=== PATIENT | female | born 1995 | race Caucasian/White ===

== ENCOUNTER 2018-10-06 16:00 | Outpatient (RCR) | payer BC, SELFPAY ==
--- NOTE | 2018-08-24 18:05 | HMH.PTOPEV ---
PT Outpatient Evaluation Rehab PT Outpatient Evaluation Start: 08/24/18 17:34 Freq: Status: Active Protocol: Document 08/24/18 17:35 CUONGASH (Rec: 08/24/18 18:05 ROSEY [id number]) Electronically Signed By Ramiro Wilkins, PT 08/24/18 17:35 Outpatient Therapy Subjective History Subjective History Pt reports she began having neck pain and LUX's ~ 1 year ago. 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 Pt reprots Rx muscle relaxers help w/ pain and frequency of LUX's. 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/Reading Driving Sleeping Sitting Recreation Activity Symptom Description Constant but Variable Level of pain today (0-10) 5 Pain scale - at its best (0-10) 1 Pain scale - at its worst (0-10) 7 Cervical Eval Palpation Cervical Muscles R Cervical Paraspinal L Cervical Paraspinal R Suboccipital L Suboccipital R Upper Trapezius L Upper Trapezius Cervical/Thoracic Palpation Findings Tenderness Trigger Point Passive Joint Mobility Cervical PIVM Inc: L C2/3 L C3/4 Dec: R C2/3 R C4/5 AROM Cervical Spine Extension Active Range of 35 Motion (degrees) Cervical Spine Flexion Active Range of 55 Motion (degrees) Cervical Spine Right Lateral Flexion 40 Active Range of Motion (degrees) Cervical Spine Left Lateral Flexion 40 Active Range of Motion (degrees) Cervical Spine Right Rotation Active 65 Ra
== END 2018-10-06 16:05 | disposition home or self-care (01) ==
LOC: PT 16:00
PROVIDERS: Visit Provider Emergency Medicine
DX: M54.2 Cervicalgia (principal)
CPT/HCPCS: 97010; 97012; 97014; 97035; 97110; 97140; 97163; G0283

== ENCOUNTER 2021-06-10 09:00 | Emergency (ER) | payer BC, SELFPAY ==
[2021-06-10 09:16] VITALS: BP 139/78; PULSE 95; RESP 16; TEMP 37.4; O2SAT 97; BMI 33.6
[2021-06-10 09:20] LABS: UTC Strep Screen (Rapid) Positive (Negative)
--- NOTE | 2021-06-10 09:36 | HMH.EDUTC ---
[facility] [place] Clinical Impression: Strep throat Disposition: Home, Self-Care Condition on Discharge: Good Instructions: DI for Strep Throat, Strep Throat Additional Instructions: Drink plenty of fluids. Take tylenol or ibuprofen for pain or fever. Take the medications as directed. Follow up with your regular doctor. GO TO THE ER FOR ANY WORSENING SYMPTOMS Throw your tooth brush away and get a new one. Prescriptions: Brompheniramine/Pseudoephed/Dm [Bromfed Dm Cough Syrup] 5 ml PO Q6HP PRN #240 ml PRN Reason: Cough Transmission Status: Pending to [facility] Amoxicillin [Amoxicillin 500mg Tab] 500 mg PO TID 10 Days #30 tab Transmission Status: Pending to [facility] Referrals: Provider,Referral, MD [Primary Care Provider] - Forms: Work/School Release Time of Disposition: 09:43 Medical Decision Making - Medical Records Medical records reviewed: No: I reviewed the patient's medical records. - Ronaldo Inquiry Pt receiving controlled substance: No Vital Signs: 06/10/21 09:16 Temperature 99.4 F Temperature Source Oral Pulse Rate [Right Brachial] 95 H Respiratory Rate 16 Blood Pressure [Right Arm] 139/78 Blood Pressure Mean [Right Arm] 98 Blood Pressure Source [Right Arm] Automatic Cuff Blood Pressure Position [Right Arm] Sitting 02 Sat by Pulse Oximetry 97 Oxygen Delivery Method Room Air - Lab Data Lab results reviewed: Yes: I reviewed the patient's lab results. Lab Results 06/10/21 09:15: Strep Scn Rapid Clinic Positive A [facility] [place] H[place] - General Stated complaint: sore throat, runny nose, LUX, congestion Time Seen by Provider: 06/10/21 09:36 Mode of Arrival: Ambulatory Source of Information: Patient Limitations: No Limitations Description of Symptoms (Recalled from Triage Doc. by RN): sore throat. congestion. fatigue HEENT Symptoms (Recalled from RN notes): Yes Resp Symptoms (Recalled from RN notes): Yes Skin Symptoms (Recalled from RN notes): No MS Symptoms (Recalled from RN notes): No Functional Status (Recalled from RN notes): yes - History of Present Illness Provider Complaint: She c/o sore throat for the past 2 days. She has a dry cough and she has been having some chilling and body aches also. - Related Data Home Medications Medication Instructions Recorded Confirmed Levonorgestrel/Ethin.estradiol 15 mg PO DAILY 06/10/21 06/10/21 [Jolessa 0.15 mg-0.03 mg Tablet] Topiramate 25 mg PO DAILY 06/10/21 06/10/21 Previous Rx's Medication Instructions Recorded Amoxicillin [Amoxicillin 500mg Tab] 500 mg PO TID 10 Days #30 tab 06/10/21 Brompheniramine/Pseudoephed/Dm 5 ml PO Q6HP PRN #240 ml 06/10/21 [Bromfed Dm Cough Syrup] Allergies Allergy/AdvReac Type Severity Reaction Status Date / Time No Known Allergies Allergy Verified 06/10/21 09:14 - Worker's Comp Is this a Worker's Comp case?: No Is this an [facility] Worker's Comp?: No Is this a [place] Worker's Comp?: No H History - Hepatitis A Screen Drug use history?: No High risk sexual behaviors?: No History of sexually transmitted infection?: No Currently employed?: No Childcare worker?: No Do you have indoor plumbing?: Yes Do you have electricity?: Yes Attestation statement:: This patient has been screened for Hepatitis A risk factors. I have reviewed the patient's past medical history: Yes ROS Obtained: Yes All systems reviewed & no additional complaints - Constitutional Constitutional: Reports chills, Reports fever(s), Reports poor appetite, Reports malaise - Eyes Eyes: Denies eye discharge - ENT Ears, Nose, Mouth, and Throat: Reports as per HPI - Cardiovascular Cardiovascular: Denies chest pain - Respiratory Respiratory: Denies chest congestion, Reports cough, Denies dyspnea, Denies stridor, Denies wheezing - Gastrointestinal Gastrointestingal: Reports: nausea. Denies: abdominal pain, diarrhea, vomiting Physical Exam - General General
[2021-06-10 09:51] VITALS: BP 139/78; PULSE 95; RESP 18; TEMP 37.4
== END 2021-06-10 09:51 | disposition home or self-care (01) ==
PROVIDERS: Emergency Provider Nurse Practitioner Family
DX: J02.0 Streptococcal pharyngitis (principal)
CPT/HCPCS: 87880; 99202; G0463

== ENCOUNTER 2021-06-13 11:30 | Emergency (ER) | payer BC, SELFPAY ==
[2021-06-13 12:46] VITALS: BP 128/84; PULSE 84; RESP 19; TEMP 37.1; O2SAT 99; BMI 34.7
--- NOTE | 2021-06-13 13:24 | HMH.EDUTC ---
[facility] [place] Disposition Clinical Impression: Strep throat, Bronchitis Disposition: Home, Self-Care Condition on Discharge: Good Instructions: DI for Strep Throat, DI for Acute Bronchitis Additional Instructions: Drink plenty of fluids. Take tylenol or ibuprofen for pain or fever. Stop the Follow up with your regular doctor. GO TO THE ER FOR ANY WORSENING SYMPTOMS Quarantine until you know the results of your covid-19 test. If it is positive, the health department should call you and give you further instructions about your length of Quarantine and other things. Notify your school or workplace of your results and follow their instructions regarding return to work/school. Don't start the oral steroids until tomorrow, since you had the shot here today. Prescriptions: methylPREDNISolone [Medrol] 4 mg PO DIRECTED 6 Days #21 packet Transmission Status[facility] Azithromycin [Z-Shahzad 250mg Tab*] 250 mg PO UD DOSE PK #6 tab Transmission Status: [facility] Referrals: Provider,Referral, [Primary Care Provider] - Medical Decision Making - Medical Records Medical records reviewed: No: I reviewed the patient's medical records. - Ronaldo Inquiry Pt receiving controlled substance: No Vital Signs: 06/13/21 12:46 06/13/21 13:46 Temperature 98.7 F 98.7 F Temperature Source Oral Pulse Rate 84 Pulse Rate [Left] 84 Respiratory Rate 19 19 Blood Pressure 128/84 Blood Pressure [Right Arm] 128/84 Blood Pressure Mean [Right Arm] 98 02 Sat by Pulse Oximetry 99 - Lab Data Lab Results 06/13/21 13:34: Chlamy pneumoniae PCR Not detected, Adenovirus (PCR) Not detected, B. pertussis DNA (PCR) Not detected, Coronavirus OC43 (PCR) Not detected, Coronavirus HKU1 (PCR) Not detected, Coronavirus 229E (PCR) Not detected, SARS-CoV-2 (PCR) Not detected, Coronavirus NL63 (PCR) Not detected, Human Metapneumovir PCR Not detected, Influenza A (H1) PCR Not detected, Influ A (H1N1/09) PCR Not detected, Influenza A (H3) PCR Not detected, Influenza Type A (PCR) Not detected, Influenza Type B (PCR) Not detected, M. pneumoniae (PCR) Not detected, Parainfluenza 1 (PCR) Not detected, Parainfluenza 2 (PCR) Not detected, Parainfluenza 3 (PCR) Not detected, Parainfluenza 4 (PCR) Not detected, RSV (PCR) Not detected, Entero/Rhino (PCR) Detected A Orders (Tests/Meds): ED MEDICATIONS Discontinued Medications Generic Name Dose Route Start Last Admin Trade Name Jeimy PRN Reason Stop Dose Admin Ceftriaxone Sodium 1 gm 06/13/21 13:32 06/13/21 13:46 Ceftriaxone 1gm Vial IM 06/13/21 13:33 1 gm ONCE ONE Administration Lidocaine HCl 0 ml 06/13/21 13:32 06/13/21 13:44 Lidocaine 1% 5ml Pf Vial IM 06/13/21 13:33 2.5 ml ONCE ONE Administration Methylprednisolone Sodium Succinate 125 mg 06/13/21 13:32 06/13/21 13:35 Methylprednisolone Sod Succ 125mg Vial IM 06/13/21 13:33 125 mg ONCE ONE Administration [facility] [place] HPI - General Stated complaint: strep postive, worsening symptoms Time Seen by Provider: 06/13/21 13:24 Mode of Arrival: Ambulatory Source of Information: Patient Limitations: No Limitations Description of Symptoms (Recalled from Triage Doc. by RN): pt was here on 06/10 dx with strep. pt states she is getting worse. her throat is hurting worse, coughing, and she is having chest congestion and heaviness with breathing. HEENT Symptoms (Recalled from RN notes): Yes (sore throat) Resp Symptoms (Recalled from RN notes): Yes (cough and chest congestion) Skin Symptoms (Recalled from RN notes): No MS Symptoms (Recalled from RN notes): No Functional Status (Recalled from RN notes): wnl - History of Present Illness Provider Complaint: She was diagnosed with strep throat 4 days ago. She was started on amoxicillin then. She states that since then she has felt worse instead of better. She has developed a cough and chest congestion. She has some
[2021-06-13 13:46] VITALS: BP 128/84; PULSE 84; RESP 19; TEMP 37.1
[2021-06-13 13:47] LABS: Adenovirus,PCR Not Detected (NotDetected); Bordetella Pertussis Not Detected (NotDetected); Chlamydophila Pneumoniae, PCR Not Detected (NotDetected); Coronavirus 19, PCR Not Detected (NotDetected); Coronavirus 229E Not Detected (NotDetected); Coronavirus NL63 Not Detected (NotDetected); Coronavirus OC43 Not Detected (NotDetected); Coronovirus HKU1,PCR Not Detected (NotDetected); Human Metapneumovirus Not Detected (NotDetected); Influenza A, PCR Not Detected (NotDetected); Influenza AH1, 2009 Not Detected (NotDetected); Influenza AH1, PCR Not Detected (NotDetected); Influenza AH3,PCR Not Detected (NotDetected); Influenza B, PCR Not Detected (NotDetected); Mycoplasma Pneumoniae, PCR Not Detected (NotDetected); Parainfluenza 1, PCR Not Detected (NotDetected); Parainfluenza 2, PCR Not Detected (NotDetected); Parainfluenza 3, PCR Not Detected (NotDetected); Parainfluenza 4, PCR Not Detected (NotDetected); Respiratory Syncytial Virus Not Detected (NotDetected)
[2021-06-13 15:17] LABS: Rhinovirus/Enterovirus Detected (NotDetected)
== END 2021-06-13 14:22 | disposition home or self-care (01) ==
PROVIDERS: Emergency Provider Nurse Practitioner Family
DX: J02.0 Streptococcal pharyngitis (principal); J20.9 Acute bronchitis, unspecified
CPT/HCPCS: 87581; 87632; 87798; 96372; 99202; C9803; G0463; U0003; U0005

== ENCOUNTER 2022-02-14 15:00 | Emergency (ER) | payer BC, SELFPAY ==
[2022-02-14 15:48] VITALS: BP 114/81; PULSE 87; RESP 19; TEMP 36.8; O2SAT 99; BMI 37.3
--- NOTE | 2022-02-14 16:20 | HMH.EDUTC ---
[facility] [place], [place] Disposition Clinical Impression: Blood pressure check Disposition: Home, Self-Care Condition on Discharge: Good Instructions: DI for Anxiety -- Adult, DI for COVID-19 (Suspected or Confirmed ) Additional Instructions: *Monitor Temp, Over the counter Motrin or Tylenol as directed/as needed Tylenol every 4 hours and Motrin every 6 hours (as long as your family doctor has told you that you can take it) for fever or pain. and straight to ER if unable to lower temp less than 101.0 after medication given Make sure to follow up with your Family Doctor as scheduled and discuss break through anxiety Return if needed Straight to ER if any life threatening symptoms Follow up IMMEDIATELY for new or worsening symptoms or no Noticeable improvement over the next 48-72 hours. 911 for difficulty breathing or swallowing You were tested for today for COVID19 your test result should be back in the next 24-48 hours, you may check your results on the [facility] portal Make sure to take your Vitamins Vit. C Vit D and Zinc if you can take them Referrals: Provider,Referral, [Primary Care Provider] - As needed Forms: Work/School Release Medical Decision Making - Ronaldo Inquiry Pt receiving controlled substance: No Ronaldo was queried for this patient: No Vital Signs: 02/14/22 15:48 Temperature 98.3 F Temperature Source Oral Pulse Rate [Brachial] 87 Respiratory Rate 19 Blood Pressure [Right Arm] 114/81 Blood Pressure Mean [Right Arm] 92 Blood Pressure Source [Right Arm] Automatic Cuff Blood Pressure Position [Right Arm] Sitting 02 Sat by Pulse Oximetry 99 Oxygen Delivery Method Room Air Medical Decision Narrative: Patient reports history of anxiety and been under stress wanting to get her blood pressure checked due to have symptoms on and off for about 3 weeks of coats, soa, blurred vision at times but not having them right now states that she did have them earlier but have subsided discussed tx to ED and patient declined wants COVID test and will follow up with PCp [facility] [place] [place] HPI - General Stated complaint: elevated bp Time Seen by Provider: 02/14/22 16:20 Mode of Arrival: Ambulatory Source of Information: Patient Limitations: No Limitations Description of Symptoms (Recalled from Triage Doc. by RN): HEADACHE, BLURRED VISION, SHORTNESS OF BREATH X 3 WEEKS. GOT WORSE TODAY. BLOOD PRESSURE CONCERN HEENT Symptoms (Recalled from RN notes): Yes Resp Symptoms (Recalled from RN notes): No Skin Symptoms (Recalled from RN notes): No MS Symptoms (Recalled from RN notes): No Functional Status (Recalled from RN notes): N/A - History of Present Illness Provider Complaint: Patient states that she has a history of anxiety States that on and off for a couple weeks she thinks she may have been having some breakthrough anxiety attacks State that earlier she felt dizzy and her vision was a little blurry but that is better now State that she felt like she couldnt catch her breath but that is gone now too States that she wants to get tested for COVID and wanted to get her blood pressure checked to see if it may be elevated - Related Data Home Medications Medication Instructions Recorded Confirmed Levonorgestrel/Ethin.estradiol 15 mg PO DAILY 06/10/21 06/10/21 [Jolessa 0.15 mg-0.03 mg Tablet] Topiramate 25 mg PO DAILY 06/10/21 06/10/21 Previous Rx's Medication Instructions Recorded Amoxicillin [Amoxicillin 500mg Tab] 500 mg PO TID 10 Days #30 tab 06/10/21 Brompheniramine/Pseudoephed/Dm 5 ml PO Q6HP PRN #240 ml 06/10/21 [Bromfed Dm Cough Syrup] Azithromycin [Z-Shahzad 250mg Tab*] 250 mg PO UD DOSE PK #6 tab 06/13/21 methylPREDNISolone [Medrol] 4 mg PO DIRECTED 6 Days #21 06/13/21 packet Allergies Allergy/AdvReac Type Severity Reaction Status Date / Time No Known Allergies Allergy Verified 06/10/21 09:14 - Worker's Comp Is this a Worker's Comp case?: No [facility] History - Hepatitis A Screen Attestation statement::
[2022-02-14 16:59] VITALS: BP 114/81; PULSE 87; RESP 18; TEMP 36.8; O2SAT 100
== END 2022-02-14 17:01 | disposition home or self-care (01) ==
PROVIDERS: Emergency Provider Nurse Practitioner
DX: R03.0 Elevated blood-pressure reading, without diagnosis of hypertension (principal)
CPT/HCPCS: 99212; C9803; G0463; U0003; U0005

== ENCOUNTER 2022-11-04 16:44 | Emergency (ER) | payer BC, SELFPAY ==
[2022-11-04 16:46] VITALS: BP 124/80; PULSE 94; RESP 20; TEMP 36.6; O2SAT 98; BMI 35.5
--- NOTE | 2022-11-04 17:38 | EXP.UTC ---
Discharge Plan Disposition Patient Disposition: Home, Self-Care Condition: Good Prescriptions Prescriptions: New fluconazole [Diflucan] 150 mg tablet 150 mg PO ONCE Qty: 1 2RF nystatin 100,000 unit/gram cream 1 applic topical BID 10 Days Qty: 30 0RF methylprednisolone 4 mg Tablets,Dose Pack 4 mg PO DIRECTED Qty: 21 0RF No Action topiramate 25 MG tablet 25 mg PO DAILY levonorgestrel-ethinyl estrad 1 EACH tablets,dose pack,3 month 15 mg PO DAILY escitalopram oxalate 10 mg tablet 10 mg PO DAILY Label Comments: TAKE 1 TABLET BY MOUTH ONCE DAILY bupropion HCl 150 mg tablet extended release 24 hr 150 mg PO DAILY Referrals Follow up/Referrals: Provider,Referral, MD [Primary Care Provider] - See instructions Activity Restrictions/Add. Instructions Additional Instructions/Restrictions: Try to identify and avoid contact with the offending substance. Don't start the oral steroids until tomorrow. Go ahead and start the diflucan and the topical nystatin cream. Follow up with your regular doctor in 48 to 72 hours if you are not getting better. GO TO THE ER FOR ANY WORSENING SYMPTOMS OR CONCERNS Clinical Impressions Clinical Impression: Contact dermatitis Instructions Patient Instructions: Contact Dermatitis, DI for Contact Dermatitis Discharge ED Provider: Ricky Elias [facility] General Stated complaint: Rash all over body and itches Mode of Arrival: Ambulatory Source of Information: Patient Limitations: No Limitations Time Seen by Provider: 11/04/22 17:38 Description of Symptoms (Recalled from Triage Doc. by RN): rash all over and it is itching HEENT Symptoms (Recalled from RN notes): No Resp Symptoms (Recalled from RN notes): No Skin Symptoms (Recalled from RN notes): Yes MS Symptoms (Recalled from RN notes): No Functional Status (Recalled from RN notes): n/a History of Present Illness Provider Complaint: She states that she has a rash on her left lower abdomen, neck, and forehead. Related Data Home Medications Medication Instructions Recorded Confirmed levonorgestrel 0.15 mg-ethinyl 15 mg PO DAILY bc 06/10/21 11/04/22 estradiol 30 mcg tablets,3 mos pack(91) topiramate 25 mg tablet 25 mg PO DAILY migraines 06/10/21 11/04/22 bupropion HCl 150 mg 24 hr tablet, 150 mg PO DAILY Depression 11/04/22 11/04/22 extended release escitalopram oxalate 10 mg tablet 10 mg PO DAILY Depression 11/04/22 11/04/22 Previous Rx's Medication Instructions Recorded fluconazole 150 mg tablet 150 mg PO ONCE #1 tab 11/04/22 (Diflucan) methylprednisolone 4 mg tablets in 4 mg PO DIRECTED #21 tabs 11/04/22 a dose pack nystatin 100,000 unit/gram topical 1 applic topical BID 10 days #30 11/04/22 cream grams Allergies Allergy/AdvReac Type Severity Reaction Status Date / Time No Known Allergies Allergy Verified 11/04/22 17:01 Worker's Comp Is this a Worker's Comp case?: No PFSH [facility] Disclaimer: The information contained in this section may have been updated after the patient was seen, as this information can be updated by other users. Social History Smoking Status: Never smoker alcohol intake: never current occupational status: employed Travel in the last 8 weeks: None ROS Obtained: Yes All systems reviewed & no additional complaints except as documented Constitutional Constitutional: Denies chills and Denies fever(s) Eyes Eyes: Denies eye discharge ENT Ears, Nose, Mouth, and Throat: Denies dizziness, Denies otalgia and Denies sore throat Cardiovascular Cardiovascular: Denies chest pain Respiratory Respiratory: Denies shortness of breath, Denies chest congestion, Denies cough, Denies stridor and Denies wheezing Gastrointestinal Gastrointestingal: Denies nausea or vomiting Musculoskeletal Musculoskeletal: Reports system reviewed and no additional complaints, except as do
[2022-11-04 18:03] VITALS: BP 116/72; PULSE 95; RESP 20; TEMP 36.6; O2SAT 100
== END 2022-11-04 18:02 | disposition home or self-care (01) ==
PROVIDERS: Emergency Provider Nurse Practitioner Family
DX: L25.9 Unspecified contact dermatitis, unspecified cause (principal)
CPT/HCPCS: 96372; 99212; 99214; G0463

== ENCOUNTER 2023-05-23 17:45 | Emergency (ER) | payer BC, SELFPAY ==
--- OUTSIDE RECORDS SUMMARY | 2023-05-23 17:52 | XMS_ITS | Patient Health Record ---
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 99, adult Problem Abnormal uterine bleeding (AUB) N93.9 confirmed [id number] Problem BMI 37.0-37.9, adult Z68.37 confirmed [id number] Problem Cervical smear,
--- NOTE | 2023-05-23 18:28 | EXP.UTC ---
Discharge Plan Disposition Patient Disposition: Home, Self-Care Condition: Good Prescriptions Prescriptions: New ondansetron 4 mg Tablet,Disintegrating 4 mg PO Q8H PRN (Reason: Nausea) Qty: 12 0RF No Action topiramate 25 MG tablet 25 mg PO DAILY levonorgestrel-ethinyl estrad 1 EACH tablets,dose pack,3 month 15 mg PO DAILY escitalopram oxalate 10 mg tablet 10 mg PO DAILY Patient Comments: TAKE 1 TABLET BY MOUTH ONCE DAILY bupropion HCl 150 mg tablet extended release 24 hr 150 mg PO DAILY fluconazole [Diflucan] 150 mg tablet 150 mg PO ONCE Qty: 1 2RF nystatin 100,000 unit/gram cream 1 applic topical BID 10 Days Qty: 30 0RF methylprednisolone 4 mg Tablets,Dose Pack 4 mg PO DIRECTED Qty: 21 0RF Referrals Follow up/Referrals: Provider,Referral, MD [Primary Care Provider] - See instructions Activity Restrictions/Add. Instructions Additional Instructions/Restrictions: Drink plenty of fluids. Take tylenol for pain or fever. Take the zofran (ondesetron) if needed for nausea. Follow up with your regular doctor. GO TO THE ER FOR ANY WORSENING SYMPTOMS Return a stool sample as discussed, so it can be analyzed for different infections. Clinical Impressions Clinical Impression: Gastroenteritis, Diarrhea Instructions Patient Instructions: Diarrhea Discharge ED Provider: Ricky Elias [facility] General Stated complaint: nausea, abd pain, dirrhea, slight anal bleeding Time Seen by Provider: 05/23/23 18:28 History of Present Illness Provider Complaint: She states that for the past 1 day she has had had n/v/d. She denies abdominal pain. Related Data Home Medications Medication Instructions Recorded Confirmed levonorgestrel 0.15 mg-ethinyl 15 mg PO DAILY bc 06/10/21 11/04/22 estradiol 30 mcg tablets,3 mos pack(91) topiramate 25 mg tablet 25 mg PO DAILY migraines 06/10/21 11/04/22 bupropion HCl 150 mg 24 hr tablet, 150 mg PO DAILY Depression 11/04/22 11/04/22 extended release escitalopram oxalate 10 mg tablet 10 mg PO DAILY Depression 11/04/22 11/04/22 Previous Rx's Medication Instructions Recorded fluconazole 150 mg tablet 150 mg PO ONCE #1 tab 11/04/22 (Diflucan) methylprednisolone 4 mg tablets in 4 mg PO DIRECTED #21 tabs 11/04/22 a dose pack nystatin 100,000 unit/gram topical 1 applic topical BID 10 days #30 11/04/22 cream grams ondansetron 4 mg disintegrating 4 mg PO Q8H PRN Nausea #12 tabs 05/23/23 tablet Allergies Allergy/AdvReac Type Severity Reaction Status Date / Time No Known Allergies Allergy Verified 05/23/23 19:05 [facility] Disclaimer: The information contained in this section may have been updated after the patient was seen, as this information can be updated by other users. Social History Smoking Status: Never smoker alcohol intake: never current occupational status: employed Travel in the last 8 weeks: None ROS Obtained: Yes All systems reviewed & no additional complaints except as documented Constitutional Constitutional: Denies chills, Denies fever(s) and Reports poor appetite ENT Ears, Nose, Mouth, and Throat: Denies dizziness and Denies sore throat Cardiovascular Cardiovascular: Denies dyspnea Respiratory Respiratory: Denies chest congestion, Denies cough and Denies dyspnea Gastrointestinal Gastrointestingal: Reports as per HPI; Denies abdominal pain Genitourinary Female Genitourinary: Denies difficulty voiding, Denies dysuria, Denies hematuria, Denies urinary frequency, Denies urinary incontinence, Denies urinary hesitancy and Denies urinary urgency Musculoskeletal Musculoskeletal: Denies arthralgias Integumentary/Breasts Skin/Breast: Denies rash Neurologic Neurologic: Denies dizziness Physical Exam General General appearance: alert and in no apparent distress Head Head exam: atraumatic and normocephalic Eye
[2023-05-23 18:40] VITALS: BP 124/76; PULSE 80; RESP 19; TEMP 37; O2SAT 98; BMI 30.1
[2023-05-23 18:46] LABS: UTC Pregnancy Test, Urine Negative (Negative)
[2023-05-23 19:18] LABS: Basophils # 0.1 K/mm3 (0-0.2); Basophils % 0.6 % (0.1-2.0); Eosinophils % 8.5 % (0.1-12.0); Hemoglobin 14.3 g/dL (12.2-16.2); Lymphocytes # 3.8 K/mm3 (0.7-4.5); Mean Corpuscular HGB Conc 34.8 g/dL (31.8-35.4); Mean Corpuscular Hemoglobin 31.5 pg (27.0-31.2); Mean Corpuscular Volume 90.6 fl (81-99); Mean Platelet Volume 9.8 fl (7.4-10.4); Monocytes # 0.5 K/mm3 (0.1-1.0); Monocytes % 4.5 % (1.7-9.3); Neutrophils # 6.1 K/mm3 (1.8-7.8); Neutrophils % 53.4 % (37.0-80.0); Platelet Count 323 K/mm3 (142-424); Red Blood Count 4.52 M/mm3 (4.20-5.40); Red Cell Distribution Width 12.3 % (11.5-17.5); White Blood Count 11.4 K/mm3 (4.8-10.8)
[2023-05-23 19:19] LABS: Chloride 108 mmol/L (98-107)
[2023-05-23 19:20] LABS: Potassium 3.7 mmoL/L (3.5-5.1); Sodium 138 mmol/L (136-145)
[2023-05-23 19:22] LABS: Apearance,Urine Clear (Clear); Color,Urine Yellow (Yellow)
[2023-05-23 19:22] LABS: Alanine Aminotransferase 28 U/L (12-78); Alkaline Phosphatase 66 U/L (38-126); Amylase 68 U/L (30-110); Anion Gap 12.7 mEq/L (5-15); Aspartate Amino Transferase 27 U/L (14-36); Bilirubin,Total 0.3 mg/dl (0.2-1.3); Blood Urea Nitrogen 8 mg/dl (7-17); Calcium 8.6 mg/dl (8.4-10.2); Carbon Dioxide 21 mmol/L (22.0-30.0); Creatinine Clearance Estimated 148 mL/min (50-200); Estimated Glomerular Filt Rate 85 ml/min (>60); GFR (African American) 103 ML/MIN (>60); Glucose 86 mg/dl (74-100)
[2023-05-23 19:23] LABS: Albumin Level 4.1 g/dl (3.5-5.0); Albumin/Globulin Ratio 1.4 (1.1-1.8); Globulin 2.9 g/dL (1.3-3.2); Lipase 124 U/L (23-300)
[2023-05-23 19:23] LABS: Bilirubin,Urine Trace (Negative); Blood, Urine 1+ (Negative); Glucose,Urine (UA) Negative (Negative); Ketones,Urine Negative (Negative); Protein,Urine Negative (Negative); UTC Leukocyte Esterase,Urine Trace (Negative); UTC Nitrate,Urine Negative (Negative); Urobilinogen,Urine 0.2 EU/dl (0.2)
[2023-05-23 19:51] VITALS: BP 124/76; PULSE 80; RESP 18; TEMP 37; O2SAT 98
== END 2023-05-23 19:51 | disposition home or self-care (01) ==
PROVIDERS: Emergency Provider Nurse Practitioner Family
DX: K52.9 Noninfective gastroenteritis and colitis, unspecified (principal); R11.2 Nausea with vomiting, unspecified
CPT/HCPCS: 80053; 81003; 81025; 82150; 83690; 85025; 99212; 99214; G0463

== ENCOUNTER → 2023-05-24 12:08 | Outpatient (CLI) | payer BC, SELFPAY ==
[2023-05-24 12:14] LABS: Adenovirus F 40/41, stool Not Detected (NotDetected); Astrovirus Not Detected (NotDetected); Campylobacter Not Detected (NotDetected); Clostridium Difficile A/B, PCR Not Detected (NotDetected); Cryptosporidium Not Detected (NotDetected); Cyclospora Cayetanesis Not Detected (NotDetected); Entamoeba histolytica Not Detected (NotDetected); Enteroaggregative E coli Not Detected (NotDetected); Enteropathogenic E coli Not Detected (NotDetected); Enterotoxigenic E coli Not Detected (NotDetected); Giardia lamblia Not Detected (NotDetected); Norovirus Not Detected (NotDetected); Plesimonas Shigalloides, PCR Not Detected (NotDetected); Rotavirus A Not Detected (NotDetected); Salmonella, PCR Not Detected (NotDetected); Sapovirus Not Detected (NotDetected); Shiga-like toxin E coli Not Detected (NotDetected); Shigella Enterovasive E coli Not Detected (NotDetected); Vibrio Cholerae Not Detected (NotDetected); Vibrio, PCR Not Detected (NotDetected); Yersinia Entercolitica, PCR Not Detected (NotDetected)
== END ==
PROVIDERS: Visit Provider Nurse Practitioner Family
DX: R10.9 Unspecified abdominal pain (principal); R19.7 Diarrhea, unspecified
CPT/HCPCS: 87507